=== PATIENT | male | born 1990 | race African-American/Black ===

== ENCOUNTER 2017-01-20 19:42 | Emergency (ER) | payer BC ==
[~2017-01-20] VITALS: Ht 172.7 cm; Wt 109.1 kg
[2017-01-20 19:54] VITALS: BP 117/61
== END 2017-01-20 21:05 | disposition left against medical advice (07) ==
LOC: EMS 19:48
DX: M54.5 Low back pain (principal); F17.210 Nicotine dependence, cigarettes, uncomplicated; X58.XXXA Exposure to other specified factors, initial encounter; Y93.89 Activity, other specified; Y92.89 Other specified places as the place of occurrence of the external cause; Y99.8 Other external cause status; Z53.21 Procedure and treatment not carried out due to patient leaving prior to being seen by health care provider

== ENCOUNTER 2017-01-21 13:36 | Emergency (ER) | payer BC, OTHER ==
[~2017-01-21] VITALS: Ht 172.7 cm; Wt 118.2 kg
[2017-01-21] MEDS ORDERED: KETOROLAC TROMETHAMINE 60 MG/2 ML VIAL IM ONE (16:45)
[2017-01-21] MEDS ORDERED: METHOCARBAMOL 500 MG TABLET PO ONE (16:45)
[2017-01-21 17:30] VITALS: BP 135/60
== END 2017-01-21 17:35 | disposition home or self-care (01) ==
LOC: EMS 13:39
DX: S39.012A Strain of muscle, fascia and tendon of lower back, initial encounter (principal); F17.210 Nicotine dependence, cigarettes, uncomplicated; Z91.012 Allergy to eggs; W01.0XXA Fall on same level from slipping, tripping and stumbling without subsequent striking against object, initial encounter; Y93.89 Activity, other specified; Y92.89 Other specified places as the place of occurrence of the external cause; Y99.8 Other external cause status
CPT/HCPCS: 96372; 99283; J1885